=== PATIENT | female | born 1945 | race Caucasian/White ===

== ENCOUNTER → 2017-11-20 14:12 | Emergency (ER) | payer MEDICARE ==
[~2017-11-20 14:12] MED LIST: Metoclopramide TAB* 10 MG PO ONE; Morphine INJ* 4 MG/ML 1 ML SYRINGE (NEW SYRINGE VERSION) IV ONE; Morphine INJ* 4 MG/ML 1 ML SYRINGE (NEW SYRINGE VERSION) ONE; NS 0.9% 500 ML* 500 ML IV ONE; Ondansetron INJ* 2 MG/ML VIAL IV ONE; Ondansetron INJ* 2 MG/ML VIAL ONE; oxyCODONE/Acetamin 5/325 MG* TAB PO ONE
--- OUTSIDE RECORDS SUMMARY | 2017-11-20 15:01 | XMS REPORT ---
:1945 External Reference #:[id number] Author Organization [employer] Address [address] [place] [address] Phone [phone] Care Team Providers Name Role Phone Az Rosales M.D. Primary Care Physician Unavailable Payers Type Date Identification Numbers Payment Provider Subscriber Commercial Policy Number: [id number] BS [place] [employer] Komal Hicks Group Number: [id number] [address] [address] PayID: [id number] [place] [address] Problems Date Description Provider Status Onset: Insomnia Active Onset: 06/01/2015 Primary open angle glaucoma Fela Bay O.D. Active Onset: 06/01/2015 Moderate Glaucoma F[place] O.D. Active Onset: 09/15/2015 Pinguecula Komal Montiel O.D. Active Onset: 01/11/2016 Nonexudative age-related macular [place] O.D. Active degeneration Onset: 01/11/2016 Combined form of senile cataract Fela [place] O.D. Active Onset: 01/11/2016 Myopia Fela Bay O.D. Active Onset: 01/11/2016 Regular astigmatism Fela Bay O.D. Active Onset: 01/11/2016 Presbyopia F[place] O.D. Active Onset: 01/18/2017 Bilateral primary open angle Liana Albright O.D. Active glaucoma Onset: 01/18/2017 Bilateral age-related nonexudative Liana Albright O.D. Active macular degeneration Onset: 02/01/2017 Open-angle glaucoma - borderline Denzel Alexis M.D. Active Onset: 06/03/2017 Tear film insufficiency Liana Albright O.D. Active Family History Date Family Member(s) Problem(s) Comments General No Current Problems Father No Current Problems Mother No Current Problems Social History Type Date Description Comments Marital Status Legal Status: Occupation [employer] Status Retired ETOH Use Denies alcohol use Smoking Patient has never smoked Recreational Drug Use Denies Drug Use Daily Caffeine Consumes on average 3 cups of regular coffee per day Allergies, Adverse Reactions, Alerts Date Description Reaction Status Severity Comments 06/01/2015 NKDA active Medications Medication Date Status Form Strength Qnty SIG Indications Ordering Provider Neomycin/Polymyx 06/03/ Active Ointment 3.5-40424- 3.500g apply H04.123 Liana Valerio in/Dexamethasone 2016 0.1 m 1/4" in Jose Ramon, both eyes O.D. at bedtime for 2 weeks. Theratears 06/02/ Active Solution 0.25% as needed Liana Albright O.D. Preservision 01/31/ Active Capsules Areds 2 1 cap by Denzel Saleh 2 2016 mouth Arleo, twice a M.D. day Refresh Tears 09/14/ Active Solution 0.5% every day Komal Anton 2016 Kiran Montiel Amitriptyline / Active Tablets 75mg Unknown HCL 0000 Timolol Maleate 06/01/ Hx Solution 0.5% 15ml 1 drop H40.11x2 Fela Sears 2014 - right eye Shanique OFrancesco 01/31/ in the 2016 morning Latanoprost 03/29/ Hx Solution 0.005% 1 drop Denzel Valerio 2014 - both eyes Arleo, 01/31/ every M.D. 2017 night Results Description No Information Procedures Date CPT Code Description Status 05/03/2017 81435 Scanning Computerized Opthalmic Diagnostic Posterior Completed Seg Retina 05/03/2017 16374 Est Patient Intermediate Exam Completed 02/01/2017 27516 Est Patient Intermediate Exam Completed 01/18/2017 22165 Scanning Computerized Ophthalmic Diagnostic Imag Completed Posterior Seg On 01/18/2017 48223 Determination Of Refractive State Completed 01/18/2017 68890 Est Patient Comprehensive Exam Completed 07/18/2016 91873 Visual Field Exam Extended Completed 07/18/2016 02057 Determination Of Refractive State Completed 07/18/2016 74033 Est Patient Intermediate Exam Completed 01/11/2016 91019 Est Patient Comprehensive Exam Completed 01/11/2016 77072 Determination Of Refractive State Completed 01/11/2016 58268 Scanning Computerized Ophthalmic Diagnostic Imag Completed Posterior Seg On 07/13/2015 92542 Est Patient Intermediate Exam Completed 06/01/2015 37058 Est Patient Intermediate Exam Completed 11/24/2014 22795 Visual Field Exam Extended Completed 11/24/2014 28608 Determination Of Refractive State Completed 11/24/2014 72206 Est Patient Comprehensive Exam Completed 11/14/2013 00497 Est Patient Intermediate Exam Completed 10/28/2013 57947 Est Patient Comprehensive Exam Completed 04/29/2013 13974 Visual Field Exam Extended Completed 10/27/2012 19189 Est Patient Comprehensive Exam Completed 10/27/2012 69840 Determination Of Refractive State Completed 10/27/2012 07206 Gonioscopy Completed 04/21/2012 55605 Est Patient Intermediate Exam Completed 04/04/2012 53026 Determination Of Refractive State Completed 04/04/2012 39160 Est Patient Comprehensive Exam Completed 09/24/2011 31794 Visual Field Exam Extended Completed 09/24/2011 19285 Est Patient Intermediate Exam Completed 01/11/2011 60079 Est Patient Intermediate Exam Completed 12/16/2010 06949 Scanning Computerized Ophthalmic Diagnostic Imag Completed Posterior Seg On 10/26/2010 42622 Est Patient Comprehensive Exam Completed 10/26/2010 56821 Determination Of Refractive State Completed 10/26/2010 77648 Scanning Computerized Opthalmic Diagnostic Posterior Completed Seg Retina 10/26/2010 58992 Scanning Computerized Opthalmic Diagnostic Posterior Completed Seg Retina 02/24/2010 35828 Visual Field Exam Extended Completed 02/24/2010 79964 Pachymetry Completed 12/23/2009 64127 Determination Of Refractive State Completed 12/23/2009 84117 Est Patient Comprehensive Exam Completed 12/16/2008 51130 Fundus Photography With Interpretation And Report Completed 12/16/2008 53458 Scanning Laser W/Interp And Report Completed 12/16/2008 65234 Determination Of Refractive State Completed 12/16/2008 10353 New Patient Comprehensive Exam Completed 05/09/2005 19066 Determination Of Refractive State Completed 05/09/2005 16587 Est Patient Comprehensive Exam Completed Encounters Type Date Location Provider CPT E/M Dx Office Visit 06/03/2017 Denzel Alexis MD, Liana Albright, 72390 H04.123 8:40a pc O.D. H10.812 Office Visit 09/15/2015 11:15a Denzel Alexis MD, Komal ManuelaOly Montiel O.D. 24590 H10.812 pc Office Visit 05/18/2014 4:00p Denzel Alexis MD, Fela [place], 29131 365.11 pc O.D. 365.72 Office Visit 04/29/2013 3:00p Denzel Alexis MD, [place] O.D. 41728 365.11 pc 365.72 Office Visit 03/23/2011 10:45a Denzel Alexis MD, [place] O.D. 75229 365.11 pc Office Visit 01/24/2011 2:15p Denzel Alexis MD, [place] O.D. 84185 372.30 pc Office Visit 12/16/2010 10:15a Denzel Alexis MD, Liana Albright, 75578 365.11 pc O.D. Office Visit 04/27/2010 8:30a Denzel Alexis MD, Sylvester Murphy M.D. 97460 365.11 pc Office Visit 02/24/2010 1:45p Denzel Alexis MD, [place] O.D. 22286 365.11 pc Plan of Care 11/15/2017 - Denzel Alexis M.D.H35.3132 Nexdtve age-related mclr degn, bilateral, intermed dry stageComments:Smoking can increase the risk of developing or worsening any eye related disease, as well as affect your overall health. If you are a smoker, we strongly recommend that you quit.If you are not a smoker, we strongly recommend that you do not start. You have Macular Degeneration. Check your Amsler Grid, with each eye separately, and take the AREDS II formula vitamins. If you notice any changes in your vision, please call the office and schedule an appointment to see any of the doctors here.H40.013 Open angle with borderline findings, low risk, ablfhadtnA69.813 Combined forms of age-related cataract, bilateralComments:You have been diagnosed with cataracts. They are limiting your vision, and I am unable to improve you with new glasses. Our next step is to schedule Cataract surgery and all necessary appointments, which Candice will do for you. We recommend that you write down any questions you may have and bring them to your preoperative appointment so that Dr. Alexis can answer them for you. If you haveany questions or concerns, you can reach Dulce or Regina at .Follow up:For preop exam before surgery.
--- OUTSIDE RECORDS SUMMARY | 2017-11-20 15:01 | XMS REPORT ---
:1945 External Reference #:[id number] Author Organization [facility] Address [address] [place] [address] Phone [phone] Care Team Providers Name Role Phone Az Rosales MD Primary Care Physician Unavailable Payers Type Date Identification Numbers Payment Provider Subscriber Commercial Policy Number: [id number] [employer] Komal Hicks PayID: [id number] [address] [address] [place] [address] Problems Date Description Provider Status Onset: 10/24/2017 Acute respiratory disease Darrin Cerda MD Active Onset: 10/24/2017 Acute serous otitis media Darrin Cerda MD Active Family History Date Family Member(s) Problem(s) Comments General Lung Cancer Father Lung Cancer Social History Type Date Description Comments Occupation Retired Cigarette Use Former Cigarette Smoker 1 Pack 10 year smoker. Quit at age Daily 27. Cigars Never Smoked Cigars Pipe Never Smoked A Pipe Smokeless Tobacco Never Used Smokeless Tobacco ETOH Use Does not drink alcohol Allergies, Adverse Reactions, Alerts Date Description Reaction Status Severity Comments 10/24/2017 NKDA active Medications Medication Date Status Form Strength Qnty SIG Indications Ordering Provider Preservision Active Tablets as directed Unknown Areds 000 Amitriptyline Active Tablets 75mg as directed Unknown HCL 000 Vital Signs Date Vital Result Comment 10/24/2017 Weight 150.00 lb Weight in kg's 68.040 Height 68 inches 5'8" Height in cm's 172.7 cm BMI (Body Mass Index) 22.8 kg/m2 Results Description No Information Procedures Date CPT Code Description Status 10/24/2017 44275 Tympanometry Completed Encounters Type Date Location Provider CPT E/M Dx Office Visit 10/24/2017 9:45a [place] 09/09/07 [place] [address] J06.9 H65.00 Plan of Care 10/24/2017 - Darrin Cerda MDJ06.9 Acute upper respiratory infection, unspecifiedComments:Symptoms of acute otitis media with resolving effusion, patient is on oral antibiotics she should resolve without any further intervention or medical management being necessary. However if she does not resolve within 6-8 weeks would be happy to see her again there was type B tympanograms and both ears indicative of fluid.H65.00 Acute serous otitis media , unspecified ear
--- NOTE | 2017-11-20 15:58 | RAD ---
INDICATION: Left shoulder injury. TECHNIQUE: 3 views of the left shoulder were obtained. FINDINGS: There is a transverse comminuted fracture of the surgical neck of the humerus. The distal fracture fragment is displaced laterally approximately 1.1 cm. IMPRESSION: COMMINUTED DISPLACED FRACTURE OF THE SURGICAL NECK OF THE HUMERUS.
--- NOTE | 2017-11-20 16:00 | RAD ---
INDICATION: Left humerus injury. TECHNIQUE: 2 views of the left humerus were obtained. FINDINGS: The bones appear osteopenic. Again note is made of a comminuted displaced fracture of the surgical neck of the humerus. There is also mild medial angulation of the distal fragment relative the proximal fragment. IMPRESSION: COMMINUTED, DISPLACED, SLIGHTLY ANGULATED FRACTURE OF THE SURGICAL NECK OF THE HUMERUS.
[2017-11-20 16:44] VITALS: BP 123/54
--- NOTE | 2017-11-22 08:10 | ED ---
Cristhian Garcia Angela, scribed for Baljeet Ortega MD on 11/20/17 at 1455 . Upper Extremity Pain - HPI Summary HPI Summary: This pt is a 72 y/o female presenting to [facility] c/o left shoulder pain s/p fall today. Pt reports she slipped and fell on her left elbow. Denies head strike or LOC. Pt states she must have hurt her left shoulder somehow. She denies headache , neck pain, hip pain, abd pain. NKDA. Denies any PMHx. - History of Current Complaint Chief Complaint: EDExtremityUpper Stated Complaint: LT SHOULDER PAIN Time Seen by Provider: 11/20/17 14:44 Hx Obtained From: Patient Mechanism Of Injury: Blunt Trauma, Fall From A Standing Position Onset/Duration: Started Hours Ago, Still Present Timing: Lasting Hours Pain Location: Shoulder - left Aggravating Factor(s): Movement, Abduction Alleviating Factor(s): Rest Associated Signs & Symptoms: Negative: Fever, Weakness, Numbness/Tingling, Chest Pain, Back Pain, Neck Pain - Allergies/Home Medications Allergies/Adverse Reactions: Allergies Allergy/AdvReac Type Severity Reaction Status Date / Time No Known Allergies Allergy Verified 07/26/14 17:24 PMH/Surg Hx/FS Hx/Imm Hx Endocrine/Hematology History: Denies: Hx Diabetes Cardiovascular History: Denies: Hx Hypertension - Surgical History Surgery Procedure, Year, and Place: L4-L5 DISCECTOMY. C-sections x2 Infectious Disease History: No Infectious Disease History: Denies: Traveled Outside the [place] in Last 30 Days - Family History Known Family History: Negative: Cardiac Disease, Hypertension, Diabetes Family History: No FHx of inflammatory bowel - Social History Alcohol Use: None Substance Use Type: Reports: None Smoking Status (MU): Former Smoker Review of Systems Negative: Fever, Chills ENT: Negative Cardiovascular: Negative Negative: Abdominal Pain Musculoskeletal: Other - left shoulder pain Negative: Other - neck pain, hip pain Negative: Headache All Other Systems Reviewed And Are Negative: Yes Physical Exam - Summary Physical Exam Summary: VITAL SIGNS: Reviewed. GENERAL: Patient is a well-developed and nourished female who is lying comfortable in the stretcher. Patient is not in any acute respiratory distress. HEAD AND FACE: No signs of trauma. No ecchymosis, hematomas or skull depressions. No sinus tenderness. EYES: PERRLA, EOMI x 2, No injected conjunctiva, no nystagmus. EARS: Hearing grossly intact. Ear canals and tympanic membranes are within normal limits. MOUTH: Oropharynx within normal limits. NECK: Supple, trachea is midline, no adenopathy, no JVD, no carotid bruit, no c- spine tenderness, neck with full ROM. CHEST: Symmetric, no tenderness at palpation LUNGS: Clear to auscultation bilaterally. No wheezing or crackles. CVS: Regular rate and rhythm, S1 and S2 present, no murmurs or gallops appreciated. ABDOMEN: Soft, non-tender. No signs of distention. No rebound no guarding, and no masses palpated. Bowel sounds are normal. EXTREMITIES: no cyanosis or clubbing. LUE: decreased ROM of left shoulder. NEURO: Alert and oriented x 3. No acute neurological deficits. Speech is normal and follows commands. SKIN: Dry and warm Triage Information Reviewed: Yes Vital Signs On Initial Exam: Initial Vitals Temp Pulse Resp BP Pulse Ox 97.6 F 78 20 138/88 98 11/20/17 14:16 11/20/17 14:16 11/20/17 14:16 11/20/17 14:16 11/20/17 14:16 Vital Signs Reviewed: Yes Diagnostics - Vital Signs Vital Signs Temp Pulse Resp BP Pulse Ox 11/20/17 14:16 97.6 F 78 20 138/88 98 - Laboratory Lab Statement: Any lab studies that have been ordered have been reviewed, and results considered in the medical decision making process. - Radiology Left Humerus XR Xray Interpretation: Positive (See Comments) - IMPRESSION: Comminuted, displaced , slightly angulated fracture of the surgical neck of the humerus. Dr. Ortega has reviewed this radiology report. Radiology Interpretation Completed By: Radiologist Left shoulder XR Xray Interpretation: Positive (See Comments) - IMPRESSION: Comminuted displaced fracture of the surgical neck of the humerus. Dr. Ortega has reviewed this radiology report. Radiology Interpretation Completed By: Radiologist Re-Evaluation - Re-Evaluation First Eval Re-Evaluation Time: 16:12 Comment: I reviewed the XR results with the pt and family. Course/Dx - Course Assessment/Plan: This pt is a 72 y/o female presenting to [facility] c/o left shoulder pain s/p fall today. Pt reports she slipped and fell on her left elbow. Denies head strike or LOC. Pt states she must have hurt her left shoulder somehow. She denies headache, neck pain, hip pain, abd pain. NKDA. Denies any PMHx. Left Humerus XR: Comminuted, displaced, slightly angulated fracture of the surgical neck of the humerus. Left shoulder XR: Comminuted displaced fracture of the surgical neck of the humerus. In the ED course the pt was given morphine and Percocet for the pain, Zofran and Reglan for the nausea and vomiting. I discussed pt care with Dr. Garcia, orthopedist, who recommends to discharge the pt and follow up in her office. Pt was given a prescription for Percocet and Reglan. Therefore the pt will be discharged to home with follow up from Dr. Garcia. She is instructed to return to the ED for any worsening or new symptoms. Pt is hemodynamically stable, alert and oriented x3. I discussed all the findings and test results with the patient. Patient was instructed to return to the emergency room immediately if any of the symptoms return or worsens. Plan of care was discussed with the patient and understands and agrees. All questions were answered at patient satisfaction. There were no further complaints or concerns. - Diagnoses Provider Diagnoses: Fracture of neck of left humerus - Physician Notifications Discussed Care of Patient With: Renee Garcia Time Discussed With Above Provider: 16:02 Instructed by Provider To: Other - I discussed pt care with Dr. Garcia, orthopedist, who recommends to discharge the pt and follow up in her office. Discharge - Discharge Plan Condition: Stable Disposition: HOME Prescriptions: Metoclopramide TAB* [Reglan TAB*] 10 mg PO Q8H PRN #10 tab PRN Reason: Nausea oxyCODONE/Acetamin 5/325 MG* [Percocet 5/325 TAB*] 1 tab PO Q6H PRN #15 tab MDD 4 PRN Reason: Pain Patient Education Materials: Arm Fracture in Adults (ED), Proximal Humerus Fracture (ED) Referrals: Az Rosales MD [Primary Care Provider] - Renee Garcia MD [Medical Doctor] - Additional Instructions: Please follow up with Dr. Garcia, orthopedics. RETURN TO THE ED FOR ANY WORSENING SYMPTOMS. The documentation as recorded by the Cristhian berry Angela accurately reflects the service I personally performed and the decisions made by me, Baljeet Ortega MD.
== END | disposition home or self-care (01) ==
LOC: ED 14:12
DX: S42.292A Other displaced fracture of upper end of left humerus, initial encounter for closed fracture (principal); M25.512 Pain in left shoulder; Z87.891 Personal history of nicotine dependence; W19.XXXA Unspecified fall, initial encounter; Y92.9 Unspecified place or not applicable
CPT/HCPCS: 96374; 96375; 99284; A9270-GY; J2270; J2405

== ENCOUNTER 2018-03-19 13:05 | Day surgery (SDC) | payer MEDICARE ==
[~2018-03-19 13:05] MED LIST changes: +Acetaminophen TAB* 325 MG PO PRN; +Buffered Lidocaine 0.9% SYRIN* 5 ML/SYR SYRINGE INTRADERM ONE; -Metoclopramide TAB* 10 MG PO ONE; +Midazolam* 1 MG/ML 2 ML VIAL (2 MG) ONE; -Morphine INJ* 4 MG/ML 1 ML SYRINGE (NEW SYRINGE VERSION) IV ONE; -Morphine INJ* 4 MG/ML 1 ML SYRINGE (NEW SYRINGE VERSION) ONE; -NS 0.9% 500 ML* 500 ML IV ONE; -Ondansetron INJ* 2 MG/ML VIAL IV ONE; -Ondansetron INJ* 2 MG/ML VIAL ONE; -oxyCODONE/Acetamin 5/325 MG* TAB PO ONE
[2018-03-19] MEDS ORDERED: Lidocaine 2% EPI 1:200000 MPF*10-20 ML VIAL ONE (15:09)
[2018-03-19] MEDS ORDERED: Ketorolac 0.5% OPHTH (NF) 0.5 % 5 ML BTL ONE (15:09)
[2018-03-19] MEDS ORDERED: Neomycin/Polymy/Dex OPTH.SUSP* MAXITROL 0.1% 5 ML ONE (15:09)
[2018-03-19] MEDS ORDERED: Lidocaine 1%* 5 ML VIAL ONE (15:09)
[2018-03-19] MEDS ORDERED: Povidone Iodine 5% OPTH* 30 ML BTL ONE (15:09)
[2018-03-19] MEDS ORDERED: Proparacaine 0.5% OPHTH.SOL* 15 ML BTL ONE (15:09)
[2018-03-19] MEDS ORDERED: acetaZOLAMIDE TAB* 250 MG ONE ×2 (15:09→17:17)
[2018-03-19] MEDS ORDERED: Phenylephrine 2.5% OPTH.SOL* 2 ML BTL ONE (15:09)
[2018-03-19] MEDS ORDERED: Cyclopentolate 1% OPTH.SOL* 2 ML BTL ONE (15:09)
[2018-03-19] MEDS ORDERED: fentaNYL* 50 MCG/ML 2 ML VIAL (100 MCG VIAL) ONE (15:37)
[2018-03-19 16:42] VITALS: BP 155/70
--- NOTE | 2018-03-20 08:33 | OP ---
DATE OF OPERATION: 03/19/18 - [facility] DATE OF : 43 SURGEON: Denzel Alexis M.D. PREOPERATIVE DIAGNOSIS: Cataract, right eye. POSTOPERATIVE DIAGNOSIS: Cataract, right eye. OPERATIVE PROCEDURE: Extracapsular cataract extraction with intraocular lens implant right eye. DESCRIPTION OF PROCEDURE: The patient was brought to the operating room after being given 1/2% Alcaine with epinephrine drops in the preoperative area. The eye was prepped and draped in the usual sterile fashion. Sterile drape and eyelid speculum were placed. Again, topical 1/2% Alcaine with epinephrine was given. A paracentesis incision was made at the 9 o'clock position with the No.75 blade. Clear cornea incision 2.2 x 2.2-mm was created at the 12 o'clock position starting at the anterior limbus using the 2.2-mm keratome. The anterior chamber was irrigated with 0.4 mL of 1% non-preservative intracameral lidocaine and filled with DisCoVisc. A capsulorrhexis was completed using the cystotome and the Utrata forceps. Hydrodissection was performed with balanced salt solution. The lens nucleus was removed with the Phacoemulsification handpiece without incident. Cortex was removed with the irrigation-aspiration handpiece. The capsular bag was re-inflated using DisCoVisc and an [id number] 21.5 implant was inserted with the shooter. Pupil was small, so a Malyugin ring was used to dilate the pupil prior to capsulorrhexis, removed after insertion of the lens. The irrigation-aspiration handpiece was used to remove all residual DisCoVisc. The eye was refilled with balanced salt solution and the wound checked and found to be watertight. Topical Maxitrol drops were given. Indication for complex cataract surgery, pupillary abnormalities requiring pupil dilation device. [id number] #: [id number] [facility]
== END 2018-03-19 16:43 | disposition home or self-care (01) ==
LOC: OREAST 13:05
PROVIDERS: ATTEND Specialist
DX: H25.811 Combined forms of age-related cataract, right eye (principal); H21.561 Pupillary abnormality, right eye; H35.3132 Nonexudative age-related macular degeneration, bilateral, intermediate dry stage; H40.013 Open angle with borderline findings, low risk, bilateral; Z87.891 Personal history of nicotine dependence
CPT/HCPCS: A9270-GY; J2250; J3010; V2632

== ENCOUNTER 2018-03-26 06:20 | Day surgery (SDC) | payer MEDICARE ==
[~2018-03-26 06:20] MED LIST changes: -Midazolam* 1 MG/ML 2 ML VIAL (2 MG) ONE
[2018-03-26] MEDS ORDERED: fentaNYL* 50 MCG/ML 2 ML VIAL (100 MCG VIAL) ONE (07:09)
[2018-03-26] MEDS ORDERED: Midazolam* 1 MG/ML 5 ML VIAL (5 MG) ONE (07:09)
[2018-03-26] MEDS ORDERED: acetaZOLAMIDE TAB* 250 MG ONE (07:44)
[2018-03-26] MEDS ORDERED: Ketorolac 0.5% OPHTH (NF) 0.5 % 5 ML BTL ONE (07:44)
[2018-03-26] MEDS ORDERED: Phenylephrine 2.5% OPTH.SOL* 2 ML BTL ONE (07:44)
[2018-03-26] MEDS ORDERED: Lidocaine 2% EPI 1:200000 MPF*10-20 ML VIAL ONE (07:44)
[2018-03-26] MEDS ORDERED: Povidone Iodine 5% OPTH* 30 ML BTL ONE (07:44)
[2018-03-26] MEDS ORDERED: Lidocaine 1%* 5 ML VIAL ONE (07:44)
[2018-03-26] MEDS ORDERED: Neomycin/Polymy/Dex OPTH.SUSP* MAXITROL 0.1% 5 ML ONE (07:44)
[2018-03-26] MEDS ORDERED: Cyclopentolate 1% OPTH.SOL* 2 ML BTL ONE (07:44)
[2018-03-26] MEDS ORDERED: Proparacaine 0.5% OPHTH.SOL* 15 ML BTL ONE (07:45)
[2018-03-26 08:11] VITALS: BP 145/53
--- NOTE | 2018-03-26 23:55 | OP ---
DATE OF OPERATION: 03/26/18 [facility] DATE OF : 43 SURGEON: Denzel Alexis MD PREOPERATIVE DIAGNOSIS: Cataract, left eye. POSTOPERATIVE DIAGNOSIS: Cataract, left eye. OPERATIVE PROCEDURE: Extracapsular cataract extraction with intraocular lens implant, left eye. DESCRIPTION OF PROCEDURE: The patient was brought to the operating room after being given 1/2% Alcaine with epinephrine drops in the preoperative area. The eye was prepped and draped in the usual sterile fashion. Sterile drape and eyelid speculum were placed. Again, topical 1/2% Alcaine with epinephrine was given. A paracentesis incision was made at the 3 o'clock position with the No.75 blade. Clear cornea incision 2.2 x 2.2-mm was created at the 6 o'clock position starting at the anterior limbus using the 2.2-mm keratome. The anterior chamber was irrigated with 0.4 mL of 1% non-preservative intracameral lidocaine and filled with DisCoVisc. A capsulorrhexis was completed using the cystotome and the Utrata forceps. Hydrodissection was performed with balanced salt solution. The lens nucleus was removed with the Phacoemulsification handpiece without incident. Cortex was removed with the irrigation-aspiration handpiece. The capsular bag was re-inflated using DisCoVisc and an [id number] 23 implant was inserted with the shooter. The pupil was very small, so a Malyugin ring was placed prior to capsulorrhexis, removed after insertion of the lens. The irrigation-aspiration handpiece was used to remove all residual DisCoVisc. The eye was refilled with balanced salt solution and the wound checked and found to be watertight. Topical Maxitrol drops were given. [id number]/[facility] #: [id number] MTDD
== END 2018-03-26 13:16 | disposition home or self-care (01) ==
LOC: OREAST 06:20
PROVIDERS: ATTEND Specialist
DX: H25.812 Combined forms of age-related cataract, left eye (principal); H21.562 Pupillary abnormality, left eye; H35.3132 Nonexudative age-related macular degeneration, bilateral, intermediate dry stage; H40.013 Open angle with borderline findings, low risk, bilateral; Z87.891 Personal history of nicotine dependence
CPT/HCPCS: A9270-GY; J2250; J3010; V2632